=== PATIENT | female | born 1980 | race Caucasian/White ===

== ENCOUNTER 2017-03-02 08:49 | Emergency (ER) | payer OTHER ==
--- NOTE | ~2017-03-02 | CR181 ---
[facility] A Service of [facility] & [facility] RADIOLOGY TEXT RESULTS PATIENT: MIREYA CLEMONS LOCATION: SED : 82 UNIT #: [id number] AGE: [address]: Lambert Barajas MD SEX: F ORDER DR: [id number] [place] [id number] E MR#: [id number] Acc #: [id number] NAME: MIREYA CLEMONS : 1980 SEX: F STUDY DATE/TIME: 03/02/2017 9:16 UNIT: SED ROOM: STUDY DESCRIPTION: CR Lumbar Spine 2 or 3 Views Attending Physician: Lambert Barajas M.D. Ordering Physician: Lambert Barajas M.D. Primary Care Physician: Evens Lund A.P.R.N. MEDICAL IMAGING REPORT This report is preliminary unless electronic signature is present. EXAM Three views of the lumbar spine. INDICATION Pain, radiating down the right leg started yesterday, after the patient was moving. FINDINGS No acute fracture or subluxation of the lumbar spine is identified. Lumbar vertebral body alignment appears within normal limits. No aggressive osseous abnormalities are seen. Patient is status post cholecystectomy. Sacroiliac joints appear relatively well preserved. There is probably some facet arthropathy at L5-S1, but discogenic disease is relative minimal. IMPRESSION No acute findings. Mild degenerative changes as noted above. Dictated by... Savana Maki M.D. THIS IS AN ELECTRONICALLY VERIFIED REPORT Savana Maki M.D. at 03/05/2017 1:23 PM AFF/carol TD: 03/02/2017 16:35 JOB #: [id number] MEDICAL IMAGING REPORT Page 1 of 1
[~2017-03-02 08:49] MED LIST: ACETAMINOPHEN PO; AMOXICILLIN PO; DARVOCET-N 1001 TA1 PO; DELTASONE20 MG PO; FLEXERIL10 MG PO; INCIVEK375 MG PO; IRON325 ( 652 PO; METHADONE PO; PEGINTRON SQ; PHENERGAN25 M1 PO; PRENATAL1 TA1 PO; RIBASPHERE400 MG PO; TORADOL10 MG PO; ZANTAC150 MG PO
[2017-03-02 09:38] LABS: URINE APPEARANCE CLEAR; URINE BILIRUBIN NEG (NEG); URINE BLOOD NEG (NEG); URINE COLOR YELLOW; URINE GLUCOSE NEG (NORM); URINE KETONE TRACE (NEG); URINE LEUKOCYTE ESTERASE NEG (NEG); URINE NITRATE NEG (NEG); URINE PH 5.5 (5-8); URINE PROTEIN NEG (NEG); URINE SOURCE CLEAN CATCH; URINE SPECIFIC GRAVITY 1.015 (1.003-1.035); URINE UROBILINOGEN 0.2 MG/DL (NORM)
[2017-03-02 09:39] LABS: MICRO INDICATED? NO
== END 2017-03-02 09:57 | disposition home or self-care (01) ==
LOC: SED 08:49
PROVIDERS: Emergency Medicine
DX: M54.40 Lumbago with sciatica, unspecified side (principal); Z88.2 Allergy status to sulfonamides; Z88.8 Allergy status to other drugs, medicaments and biological substances; Z79.899 Other long term (current) drug therapy
CPT/HCPCS: 72100; 81003; 84703; 96372; 99283; J1885